=== PATIENT | male | born 1940 | race Caucasian/White ===

== ENCOUNTER → 2016-12-05 | Outpatient (CLI) | payer MEDICARE ==
--- NOTE | 2016-12-05 14:42 | PCVCIMAG ---
EXAM: BILATERAL CAROTID DUPLEX INDICATION: Carotid Occlusive Disease. FINDINGS: Doppler Measurements (centimeters per second): RIGHT: Peak CCA-59, Peak ECA-300, Diastolic ICA-35, Peak ICA-162, ICA/CCA Ratio-2.7. LEFT: Peak CCA-62, Peak ECA-195, Diastolic ICA-42, Peak ICA-265, ICA/CCA Ratio-4.3. RIGHT CAROTID: The carotid bulb has moderate plaque. The proximal internal carotid artery shows 60-70% stenosis. The common carotid artery shows no significant stenosis. The external carotid artery shows 80% stenosis. LEFT CAROTID: The carotid bulb has severe plaque. The proximal internal carotid artery shows 70-80% stenosis. The common carotid artery shows no significant stenosis. The external carotid artery shows 70-80% stenosis. Antegrade flow in both vertebral arteries. IMPRESSION: 60-70% stenosis of the right internal carotid artery with moderate plaque. 70-80% stenosis of the left internal carotid artery with severe plaque. LOC:[id number]
== END | disposition home or self-care (01) ==
LOC: PCVCIMAG 11:02
PROVIDERS: ATTEND Internal Medicine Cardiovascular Disease
DX: I65.23 Occlusion and stenosis of bilateral carotid arteries (principal); I25.810 Atherosclerosis of coronary artery bypass graft(s) without angina pectoris; J44.9 Chronic obstructive pulmonary disease, unspecified; I71.4 Abdominal aortic aneurysm, without rupture; I48.2 Chronic atrial fibrillation; I10 Essential (primary) hypertension; I73.9 Peripheral vascular disease, unspecified; E78.00 Pure hypercholesterolemia, unspecified; Z79.01 Long term (current) use of anticoagulants; Z96.0 Presence of urogenital implants; Z79.82 Long term (current) use of aspirin; Z87.891 Personal history of nicotine dependence
CPT/HCPCS: 80061; 93005; 93880; G0463

== ENCOUNTER → 2017-01-02 | Outpatient (CLI) | payer MEDICARE | END | disposition home or self-care (01) | LOC: PCVCCLINIC 14:53 | PROVIDERS: ATTEND Internal Medicine Cardiovascular Disease | DX: I48.2 Chronic atrial fibrillation (principal); I25.810 Atherosclerosis of coronary artery bypass graft(s) without angina pectoris; I71.4 Abdominal aortic aneurysm, without rupture; I73.9 Peripheral vascular disease, unspecified; I10 Essential (primary) hypertension; E78.00 Pure hypercholesterolemia, unspecified; J44.9 Chronic obstructive pulmonary disease, unspecified; Z79.01 Long term (current) use of anticoagulants; Z87.891 Personal history of nicotine dependence; Z79.82 Long term (current) use of aspirin | CPT/HCPCS: 36415; 93005; G0463 ==

== ENCOUNTER → 2017-01-16 | Outpatient (CLI) | payer MEDICARE | END | disposition home or self-care (01) | LOC: PCVCCLINIC 12:09 | PROVIDERS: ATTEND Internal Medicine Cardiovascular Disease | DX: I25.10 Atherosclerotic heart disease of native coronary artery without angina pectoris (principal); I11.0 Hypertensive heart disease with heart failure; I50.9 Heart failure, unspecified; R60.0 Localized edema; J44.9 Chronic obstructive pulmonary disease, unspecified; G47.33 Obstructive sleep apnea (adult) (pediatric); I48.2 Chronic atrial fibrillation; I71.4 Abdominal aortic aneurysm, without rupture; I65.23 Occlusion and stenosis of bilateral carotid arteries; I73.9 Peripheral vascular disease, unspecified; R94.31 Abnormal electrocardiogram [ECG] [EKG]; I45.10 Unspecified right bundle-branch block; Z87.891 Personal history of nicotine dependence; Z79.01 Long term (current) use of anticoagulants; Z79.899 Other long term (current) drug therapy | CPT/HCPCS: 36415; 93005; G0463 ==

== ENCOUNTER → 2017-07-03 | Outpatient (CLI) | payer MEDICARE | END | disposition home or self-care (01) | LOC: PCVCIMAG 07:58 | DX: I65.23 Occlusion and stenosis of bilateral carotid arteries (principal); I71.4 Abdominal aortic aneurysm, without rupture; I73.9 Peripheral vascular disease, unspecified; I25.810 Atherosclerosis of coronary artery bypass graft(s) without angina pectoris; I48.2 Chronic atrial fibrillation; I10 Essential (primary) hypertension; E78.00 Pure hypercholesterolemia, unspecified; G47.33 Obstructive sleep apnea (adult) (pediatric); J44.9 Chronic obstructive pulmonary disease, unspecified; Z95.1 Presence of aortocoronary bypass graft; Z87.891 Personal history of nicotine dependence; Z79.899 Other long term (current) drug therapy; Z79.82 Long term (current) use of aspirin | CPT/HCPCS: 80061; 93880; 93925; 93978 ==

== ENCOUNTER → 2017-07-04 | Outpatient (CLI) | payer MEDICARE | END | disposition home or self-care (01) | LOC: PCVCCLINIC 15:30 | DX: I25.810 Atherosclerosis of coronary artery bypass graft(s) without angina pectoris (principal); I48.2 Chronic atrial fibrillation; I10 Essential (primary) hypertension; E78.00 Pure hypercholesterolemia, unspecified; I71.4 Abdominal aortic aneurysm, without rupture; I65.29 Occlusion and stenosis of unspecified carotid artery; I73.9 Peripheral vascular disease, unspecified; G47.33 Obstructive sleep apnea (adult) (pediatric); J44.9 Chronic obstructive pulmonary disease, unspecified; R94.31 Abnormal electrocardiogram [ECG] [EKG]; Z95.1 Presence of aortocoronary bypass graft; Z87.891 Personal history of nicotine dependence; Z79.899 Other long term (current) drug therapy; Z79.82 Long term (current) use of aspirin | CPT/HCPCS: 80061; 93005; G0463 ==

== ENCOUNTER → 2017-11-20 | Outpatient (CLI) | payer MEDICARE ==
[~2017-11-20] MED LIST: REGADENOSON 0.4 MG/5 ML DISP.SYRIN. IV
== END | disposition home or self-care (01) ==
LOC: PCVCIMAG 14:47
DX: I07.1 Rheumatic tricuspid insufficiency (principal); I25.10 Atherosclerotic heart disease of native coronary artery without angina pectoris; I48.91 Unspecified atrial fibrillation; G47.33 Obstructive sleep apnea (adult) (pediatric); J44.9 Chronic obstructive pulmonary disease, unspecified; I73.9 Peripheral vascular disease, unspecified; I71.4 Abdominal aortic aneurysm, without rupture; I10 Essential (primary) hypertension
CPT/HCPCS: 78452; 93017; 93306; A9500; J2785

== ENCOUNTER → 2018-03-30 | Outpatient (CLI) | payer MEDICARE | END | disposition home or self-care (01) | LOC: PCVCCLINIC 15:45 | PROVIDERS: ATTEND Internal Medicine Cardiovascular Disease | DX: I25.810 Atherosclerosis of coronary artery bypass graft(s) without angina pectoris (principal); I48.2 Chronic atrial fibrillation; I71.4 Abdominal aortic aneurysm, without rupture; I65.23 Occlusion and stenosis of bilateral carotid arteries; E78.00 Pure hypercholesterolemia, unspecified; I10 Essential (primary) hypertension; I73.9 Peripheral vascular disease, unspecified; G47.33 Obstructive sleep apnea (adult) (pediatric); M1A.0420 Idiopathic chronic gout, left hand, without tophus (tophi); J44.9 Chronic obstructive pulmonary disease, unspecified; R94.31 Abnormal electrocardiogram [ECG] [EKG]; Z79.01 Long term (current) use of anticoagulants; Z95.1 Presence of aortocoronary bypass graft; Z79.899 Other long term (current) drug therapy | CPT/HCPCS: 36415; 80061; 93005; G0463 ==

== ENCOUNTER → 2018-06-22 | Outpatient (CLI) | payer MEDICARE ==
--- NOTE | 2018-06-22 14:14 | PCVCIMAG ---
EXAM: BILATERAL CAROTID DUPLEX INDICATION: Carotid Occlusive Disease. FINDINGS: Doppler Measurements (centimeters per second): RIGHT: Peak CCA-73, Peak ECA-320, Diastolic ICA-51, Peak ICA-219, ICA/CCA Ratio-3.0. LEFT: Peak CCA-42, Peak ECA-190, Diastolic ICA-62, Peak ICA-285, ICA/CCA Ratio-6.8. RIGHT CAROTID: The carotid bulb has moderate plaque. The proximal internal carotid artery shows 60-70% stenosis. The common carotid artery shows no significant stenosis. The external carotid artery shows 80% stenosis. LEFT CAROTID: The carotid bulb has severe plaque. The proximal internal carotid artery shows 70-80% stenosis. The common carotid artery shows no significant stenosis. The external carotid artery shows 60% stenosis. Antegrade flow in both vertebral arteries. IMPRESSION: 60-70% stenosis of the right internal carotid artery with moderate plaque. 70-80% stenosis of the left internal carotid artery with severe plaque. Little overall change since June 2017. LOC:[id number]
--- NOTE | 2018-06-22 14:14 | PCVCIMAG ---
EXAM: AORTOILIAC DUPLEX INDICATION: Abdominal aortic aneurysm with previous open repair. FINDINGS: AORTA: Suprarenal aorta measures maximum diameter of 3.0 cm. There is a fusiform infrarenal aortic aneurysm. The infrarenal aorta measures maximum diameter of 3.5 cm. No aortic stenosis. RIGHT COMMON ILIAC ARTERY: Maximum diameter is 1.7 cm. No significant stenosis. RIGHT EXTERNAL ILIAC ARTERY: No significant stenosis. LEFT COMMON ILIAC ARTERY: Maximum diameter is 1.6 cm. No significant stenosis. LEFT EXTERNAL ILIAC ARTERY: No significant stenosis. IMPRESSION: 3.5 cm infrarenal abdominal aortic aneurysm is unchanged compared to June 2017 study. No aortoiliac stenosis. LOC:[id number]
--- NOTE | 2018-06-22 14:18 | PCVCIMAG ---
EXAM: BILATERAL LOWER EXTREMITY ARTERIAL DUPLEX INDICATION: Peripheral Arterial Disease. Leg pain. FINDINGS: Right Leg: Common femoral artery is patent. 90% stenosis origin profunda femoral artery. Occlusion throughout the [place] superficial femoral artery. Popliteal artery is patent. The peroneal artery is occluded. Anterior tibial and posterior tibial arteries are occluded. Left Leg: Common femoral and profunda femoral arteries are patent. Occlusion throughout the [place] mid and distal superficial femoral artery. Popliteal artery refills and is patent. Peroneal artery is occluded. Anterior tibial and posterior tibial arteries are patent. 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 Occlusion throughout the mid/distal [place] left superficial femoral artery. 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 No change since prior duplex study of June 2017. No change since 2013 conventional angiogram. LOC:[id number]
== END | disposition home or self-care (01) ==
LOC: PCVCIMAG 09:31
PROVIDERS: ATTEND Internal Medicine Cardiovascular Disease
DX: I65.23 Occlusion and stenosis of bilateral carotid arteries (principal); I25.810 Atherosclerosis of coronary artery bypass graft(s) without angina pectoris; I48.2 Chronic atrial fibrillation; I71.4 Abdominal aortic aneurysm, without rupture; I10 Essential (primary) hypertension; I73.9 Peripheral vascular disease, unspecified; E78.00 Pure hypercholesterolemia, unspecified; Z87.891 Personal history of nicotine dependence; Z79.899 Other long term (current) drug therapy
CPT/HCPCS: 93005; 93880; 93925; 93978; G0463

== ENCOUNTER → 2019-02-25 | Outpatient (CLI) | payer MEDICARE | END | disposition home or self-care (01) | LOC: PCVCCLINIC 09:00 | PROVIDERS: ATTEND Nuclear Medicine Nuclear Cardiology | DX: I25.810 Atherosclerosis of coronary artery bypass graft(s) without angina pectoris (principal); I73.9 Peripheral vascular disease, unspecified; I48.20 Chronic atrial fibrillation, unspecified; I71.4 Abdominal aortic aneurysm, without rupture; I10 Essential (primary) hypertension; E78.00 Pure hypercholesterolemia, unspecified; J44.9 Chronic obstructive pulmonary disease, unspecified; Z79.01 Long term (current) use of anticoagulants; Z82.49 Family history of ischemic heart disease and other diseases of the circulatory system; Z82.3 Family history of stroke; Z80.8 Family history of malignant neoplasm of other organs or systems; Z87.891 Personal history of nicotine dependence; Z72.89 Other problems related to lifestyle; Z79.899 Other long term (current) drug therapy; Z88.8 Allergy status to other drugs, medicaments and biological substances; Z79.82 Long term (current) use of aspirin | CPT/HCPCS: 36415; G0463 ==